=== PATIENT | female | born 1995 | race Caucasian/White ===

== ENCOUNTER 2019-09-09 17:28 | Emergency (ER) | payer MEDICAID ==
[~2019-09-09] VITALS: Ht 175.3 cm; Wt 144.2 kg
[2019-09-09 17:44] VITALS: BP 123/94
--- NOTE | 2019-09-09 17:50 | NUR ---
PT AMBULATED TO BED 12.
--- NOTE | 2019-09-09 18:00 | NUR ---
24/F presents ambulatory to ED, referred from urgent care, c/o vaginal bleeding x2 weeks. Pt reports intermittent sharp LLQ pain and L lower back pain, x2 weeks. Pt reports intermittent dizziness/lightheadedness with headache, x2 weeks. Pt awake and alert, skin normal color warm and dry, rr even and unlabored. Lung sounds clear BL. BS active x4, abd soft round tender to LLQ only.
[2019-09-09 18:22] LABS: BILIRUBIN,URINE 2+ (NEGATIVE); BLOOD, URINE 3+ (NEGATIVE); COLOR,URINE DARK YELLOW (YELLOW); LEUKOCYTE ESTERASE ,URINE NEGATIVE (NEGATIVE); NITRITE, URINE NEGATIVE (NEGATIVE); PH,URINE 5.5 (5.0-9.0); UGLUCOSE NEGATIVE (NEGATIVE)
[2019-09-09 18:47] LABS: RBC,URINE TOO NUMEROUS TO COUN /HPF (0-5)
[2019-09-09 18:48] LABS: WBC,URINE 16-25 (MOD) /HPF (0-5)
[2019-09-09 18:54] LABS: APPEARANCE,URINE CLOUDY (CLEAR)
[2019-09-09 18:59] LABS: BASOPHILS # (AUTO) 0.1 K/uL (0.00-0.22); BASOPHILS % (AUTO) 1.1 % (0.0-2.0); EOSINOPHILS # (AUTO) 0.2 K/uL (0-0.4); EOSINOPHILS % (AUTO) 1.7 % (0.0-4.0); HEMATOCRIT 39.5 % (36-48); HEMOGLOBIN 12.8 g/dL (12.0-16.0); LYMPHOCYTES # (AUTO) 2.6 K/uL (2.5-16.5); LYMPHOCYTES % (AUTO) 25.6 % (20.5-51.1); MEAN CORPUSCULAR HEMOGLOBIN 25 pg (27-31); MEAN CORPUSCULAR HGB CONC 32 g/dL (33-37); MEAN CORPUSCULAR VOLUME 76.6 fL (80-94); MONOCYTES # (AUTO) 0.6 K/uL (0.8-1.0); MONOCYTES % (AUTO) 5.4 % (1.7-9.3); NEUTROPHILS # (AUTO) 6.7 K/uL (1.8-7.7); NEUTROPHILS % (AUTO) 66.2 % (42.2-75.2); PLATELET COUNT (AUTO) 383 K/uL (140-450); RED BLOOD CELL COUNT(AUTO) 5.16 MIL/uL (4.20-5.40); RED CELL DISTRIBUTION WIDTH 16.5 % (11.6-13.7); WHITE BLOOD COUNT (AUTO) 10.2 K/uL (4.8-10.8)
[2019-09-09 19:11] LABS: PROTHROMBIN TIME 10.2 secs (10.8-13.4)
[2019-09-09 22:48] VITALS: BP 123/94
--- NOTE | 2019-09-09 22:48 | NUR ---
Patient discharged BY DR. JOVEL with v/s stable. Written and verbal after care instructions given and explained BY DR. JOVEL . Patient alert, oriented and verbalized understanding of instructions. Ambulatory with steady gait. All questions addressed prior to discharge. ID band removed. Patient advised to follow up with PMD. Rx of PROVERA given. Patient educated on indication of medication including possible reaction and side effects. Opportunity to ask questions provided and answered.
== END 2019-09-09 22:48 | disposition home or self-care (01) ==
LOC: MED 17:28
DX: N93.8 Other specified abnormal uterine and vaginal bleeding (principal); R42 Dizziness and giddiness
CPT/HCPCS: 36415; 81001; 81025; 84702; 85025; 85610; 85730; 99283